=== PATIENT | male | born 1945 | race Caucasian/White ===

== ENCOUNTER → 2019-05-03 | Outpatient (CLI) | payer MEDICARE, OTHER ==
--- NOTE | 2019-05-03 11:16 | RAD ---
EXAM: CAROTID DOPPLER SONOGRAM. HISTORY: Left carotid bruit. TECHNIQUE: Garcia scale and color Doppler sonographic evaluation of the neck with spectral waveform analysis was performed and static images are submitted for review. FINDINGS: RIGHT: The peak systolic velocity within the common carotid artery is 64 cm/sec. The peak systolic velocity within the internal carotid artery is 119 cm/sec and the end diastolic velocity within the internal carotid artery is 29 cm/sec. The ICA/CCA ratio is 1.5. Grayscale images demonstrate bulky mixed plaquing at the carotid bulb. LEFT: The peak systolic velocity within the common carotid artery is 57 cm/sec. The peak systolic velocity within the internal carotid artery is 157 cm/sec and the end diastolic velocity within the internal carotid artery is 37 cm/sec. Velocities are also elevated at the left bulb with peak systolic velocity 188 cm/s. The ICA/CCA ratio is 3.1. Grayscale images demonstrate moderate uncalcified plaquing at the bulb. There is antegrade flow within both vertebral arteries. IMPRESSION: 1. Hemodynamics consistent with 50-69% stenosis of the left carotid bulb. Relatively bulky plaquing at the right bulb results in grayscale stenosis without elevated velocities. CTA or MRA could further characterize stenosis if there is persistent concern. PQRS Compliance Statement - Stenosis calculations for CT, MR and conventional angiography are based upon measurement of the distal ICA diameter in accordance with the NASCET methodology. Stenosis calculations for carotid ultrasound studies are derived from validated velocity criteria which are known to correlate with the NASCET methodology. Electronically signed by: Jus Almeida MD (05/03/2019 11:13 AM) [facility]
== END | disposition home or self-care (01) ==
LOC: US 09:06
PROVIDERS: ATTEND Family Medicine
DX: I65.23 Occlusion and stenosis of bilateral carotid arteries (principal)
CPT/HCPCS: 93880

== ENCOUNTER → 2020-01-07 | Outpatient (CLI) | payer MEDICARE, OTHER ==
--- NOTE | 2020-01-07 09:05 | RAD ---
MR#: [id number] Date of Study: 01/07/2020 Ordering Physician: ROSELIA RAYGOZA, Referring Physician: ROSELIA RAYGOZA, Tech: Shobha Swanson RVT, MS APPROVED REPORT Patient Location: OUT-PATIENT Laterality:Bilateral Indications Bruit Grayscale images of the bilateral carotid bulbs demonstrate moderate to severe heavy calcific plaque. The degree of obstruction is difficult to visualize on these grayscale images. On the right side there is likely a greater than 70% stenosis involving the external carotid artery a nd overall 0 to less than 50% stenosis involving the internal carotid artery. Nonetheless, the carot id bifurcation appears to have heavy calcification. On the left side at the level of the carotid bulb and proximal internal carotid artery there is an es timated 50 to 69% stenosis based on velocity criteria. Again calcium is obscuring the evaluation. Doppler Spectral Velocity Analysis Right Left pCCA 60/15 cm/spCCA 77/20 cm/s mCCA 65/15 cm/smCCA 58/16 cm/s dCCA 65/18 cm/sdCCA 57/19 cm/s Bulb 79/20 cm/sBulb 223/57 cm/s ECA 197/23 cm/sECA 89/23 cm/s pICA 95/26 cm/spICA 163/26 cm/s Alem 81/27 cm/smICA 113/29 cm/s dICA 83/30 cm/sdICA 78/21 cm/s Vert. 47/15 cm/sVert. 41/10 cm/s ICA/CCA 1.46ICA/CCA 2.12 Critical Notification Critical Value: No <Conclusion> 1. Moderate bilateral carotid bulb disease with likely moderate 50 to 69% stenosis involving the pro ximal internal carotid artery. Signed by : Roselia Raygoza, Electronically Approved : 01/07/2020 09:04:25
== END | disposition home or self-care (01) ==
LOC: US 07:46
PROVIDERS: ATTEND Internal Medicine Cardiovascular Disease
DX: I65.23 Occlusion and stenosis of bilateral carotid arteries (principal); I73.9 Peripheral vascular disease, unspecified
CPT/HCPCS: 93880

== ENCOUNTER 2021-10-20 12:05 | Emergency (ER) | payer MEDICARE, OTHER ==
[~2021-10-20] VITALS: Ht 177.8 cm; Wt 69.4 kg
--- NOTE | 2021-10-20 12:34 | PHYS DOC ---
Past History Past Surgical History: No Surgical History Alcohol Use: None General Adult EDM: Chief Complaint: NEURO SYMPTOMS/DEFICITS HPI: HPI: 76-year-old male presents with neuro symptoms. The patient was at a restaurant around 11 AM. When he went to get up, he was having difficulty grasping things with his right hand. He also had some unsteadiness when he stood up. He was able to talk but felt like he had to be very intentional about the words he used. He drove himself home with others following him. They told him he was drifting on the road a bit. The patient's then brought him to the emergency room. At this time all of his symptoms have resolved. Prior to this episode he was feeling normal and had no complaints. Review of Systems: Review of Systems: Constitutional: Denies fever or chills Eyes: Denies change in visual acuity HENT: Denies nasal congestion or sore throat Respiratory: Denies cough or shortness of breath Cardiovascular: Denies chest pain or edema GI: Denies abdominal pain, nausea, vomiting, bloody stools or diarrhea : Denies dysuria Musculoskeletal: Denies back pain or joint pain Integument: Denies rash Neurologic: Speech difficulty, right hand weakness; now resolved. Endocrine: Denies polyuria or polydipsia Lymphatic: Denies swollen glands Psychiatric: Denies depression or anxiety Allergies: Allergies: Allergies Coded Allergies Type Severity Reaction Last Updated Verified Penicillins Allergy Unknown 10/20/21 Yes Physical Exam: PE: Constitutional: Well developed, well nourished, no acute distress, non-toxic appearance. [] HENT: Normocephalic, atraumatic, bilateral external ears normal, oropharynx moist, no oral exudates, nose normal. [] Eyes: PERRLA, EOMI, conjunctiva normal, no discharge. [] Neck: Normal range of motion, no tenderness, supple, no stridor. [] Cardiovascular: Heart rate regular rhythm, no murmur [] Lungs & Thorax: Bilateral breath sounds clear to auscultation [] Abdomen: Bowel sounds normal, soft, no tenderness, no masses, no pulsatile masses. [] Skin: Warm, dry, no erythema, no rash. [] Back: No tenderness, no CVA tenderness. [] Extremities: No tenderness, no cyanosis, no clubbing, ROM intact, no edema. [] Neurologic: Alert and oriented X 3, normal motor function, normal sensory function, no focal deficits noted. [] Psychologic: Affect normal, judgement normal, mood normal. [] Current Patient Data: Vital Signs: Vital Signs Date Time Temp Pulse Resp B/P (MAP) Pulse Ox O2 Delivery O2 Flow Rate FiO2 10/20/21 12:10 98.0 70 22 149/65 (93) 97 Room Air EKG: EKG: [] Radiology/Procedures: Radiology/Procedures: [] Impressions: CT Head W/O Contrast: History: Reason: facial droop, right side weakness, difficulty speaking / Spl. Instructions: / History: Not a stroke protocol. Comparison: none Axial images were obtained without contrast. The cook and white matter appears normal and symmetrical for the patients age. There is no mass effect, extraaxial fluid collections or hydrocephalus. There is no gross bleed. 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 There is no focal loss of cook-white matter distinction to suggest acute ischemia, i.e. stroke. Impression: No acute findings. PQRS Compliance Statement: One or more of the following individualized dose reduction techniques were utilized for this examination: 1. Automated exposure control 2. Adjustment of the mA and/or kV according to patient size 3. Use of iterative reconstruction technique Electronically signed by: Christiana Murray III, MD (10/20/2021 1:04 PM) [id number] DICTATED AND SIGNED BY: CHRISTIANA MURRAY III, MD DATE: 10/20/21 1301 CC: AMY SAHA DO; AMAYA IRENE MD ~ EXAMINATION: CTA HEAD AND NECK W/WO CONTRAST CLINICAL HISTORY: Aphasia, right-sided weakness, disorientation. TECHNIQUE: Spiral high resolution axial images were obtained through the head, neck and superior mediastinum following bolus administration of intravenous contrast for CT angiography. 3D maximum intensity projection images also performed. CT Dose Reduction Employed: One or more of the following individualized dose reduction techniques were utilized for this examination: 1. Automated exposure control 2. Adjustment of the mA and/or kV according to patient size 3. Use of iterative reconstruction technique. COMPARISON: NECT head same day FINDINGS: BRAIN: No evidence of acute ischemic stroke or intracranial hemorrhage. NECK: Soft Tissues: No acute abnormality. Spine: No significant degenerative changes. Lung Apices: Visualized lung apices unremarkable. CT ARTERIOGRAM: Extracranial Circulation: Aortic Arch: Normal branching pattern from the aortic arch. No significant stenosis in the proximal brachiocephalic vessels. Carotid Stenosis: Right Common: No significant stenosis. Right Internal Carotid Plaque: Moderate mixed plaque in the bulb with superimposed thrombus. Contrast dissects through the thrombus without definitive evidence of free floating thrombus. Right Internal Carotid Stenosis (% by NASCET Criteria): Estimated 55% stenosis in the carotid bulb. Left Common: No significant stenosis. Left Internal Carotid Plaque: Moderate mixed plaque in the bulb. Left Internal Carotid Stenosis (% by NASCET Criteria): Estimated 80% stenosis in the carotid bulb. Cervical Vertebral Arteries: Patency: Bilateral Dominance: Right Intracranial Circulation: Anterior Circulation: No evidence of large vessel occlusion. Mild calcified plaque in the intracranial portion of bilateral internal carotid arteries. Vertebrobasilar Circulation: No evidence of large vessel occlusion. Minimal calcified plaque in the intracranial portion of the right vertebral artery. IMPRESSION: No visualized large vessel occlusion. Contrast dissecting through thrombus in the right carotid bulb without definitive evidence of free floating thrombus. Thrombus and subjacent atherosclerotic plaque results in 55% stenosis in the carotid bulb. Estimated 80% stenosis in the left carotid bulb. Findings discussed with AMY SAHA DO at 10/20/2021 2:30 PM. Images not available at the physician workstation until 2:08 PM. Electronically signed by: Robby Horowitz DO (10/20/2021 2:37 PM) [facility] DICTATED AND SIGNED BY: ROBBY HOROWITZ DO DATE: 10/20/21 141 CC: AMY SAHA DO; AMAYA IRENE MD ~ Heart Score: C/O Chest Pain: N/A Risk Factors: Risk Factors: DM, Current or recent (<one month) smoker, HTN, HLP, family history of CAD, obesity. Risk Scores: Score 0 - 3: 2.5% MACE over next 6 weeks - Discharge Home Score 4 - 6: 20.3% MACE over next 6 weeks - Admit for Clinical Observation Score 7 - 10: 72.7% MACE over next 6 weeks - Early Invasive Strategies Course & Med Decision Making: Course & Med Decision Making Pertinent Labs and Imaging studies reviewed. (See chart for details) The patient's initial NIH score was 0. All of his labs and work-up are pending, he began to have more difficulty speaking. His words are clear but that not making any sense. I showed him his head CT report and asked him to read it. The words that he was saying were clear but it was nonsensical. I discussed CT angiogram with the patient's and then tPA. The patient is still well wi thin the window of tPA use. He does not have any absolute contraindications. She states she believes the patient would want to move forward with this medication. Just before we started the patient's tPA, the radiologist called with the CT angiogram read. He mentioned a right internal carotid stenosis with a possibly mobile thrombus. The patient also has an 80% occlusion on the left. I spoke with our neurologist at [facility], Dr. Marrufo and he recommended I consult stroke neurology. I spoke with Dr. Recinos at and she recommended continuing with the tPA if the patient wanted to and then transferring the patient to [facility] for monitoring, evaluation of his vascular stenosis and likely procedure to correct this. I had a long conversation with the patient and his . The patient is back to baseline at 1500. He has opted not to do tPA at this time but has agreed to transfer and admission at [facility]. If he has an additional episode we will give the tPA. This is consistent with the options Dr. Recinos talk to me about. I made the hospitalist, Dr. Oquendo aware of these conversations. He is the accepting physician for transfer. [] Lilibeth Disclaimer: Lilibeth Disclaimer: This electronic medical record was generated, in whole or in part, using a voice recognition dictation system. NIH Stroke Scale: NIH Stroke Scale Response (Comments) Value Level of Consciousness: 0 Alert/Responsive 0 LOC Questions: 0 Answers both correctly 0 LOC Commands: 0 Performs both tasks 0 Best Gaze: 0 Normal 0 Visual: 0 No visual loss 0 Facial Palsy: 0 Normal, symmetrical 0 Motor - Left Arm 0 No drift 0 Motor - Right Arm 0 No drift 0 Motor - Left Leg 0 No drift 0 Motor: Right Leg 0 No drift 0 Limb Ataxia: 0 Absent 0 Sensory: 0 No loss 0 Best Language: 2 Severe aphasia 2 Dysathria: 0 Normal 0 Extinction and Inattention: 0 Normal 0 Total 2 Departure Departure: Impression: Primary Impression: Aphasia Additional Impressions: Carotid stenosis Qualified Codes: I65.23 - Occlusion and stenosis of bilateral carotid arteries Hypertension Disposition: 02 SHORT TERM HOSPITAL Condition: STABLE Referrals: AMAYA IRENE MD (PCP) AMY SAHA DO Oct 20, 2021 12:34
[2021-10-20 13:03] LABS: BASO # 0.1 x10^3/uL (0.0-0.2); BASO % 1 % (0-3); EOS # 0.3 x10^3/uL (0.0-0.7); EOS % 4 % (0-3); HEMATOCRIT 41.3 % (39.0-53.0); HEMOGLOBIN 13.6 g/dL (13.0-17.5); LYMPH % 14 % (24-48); MEAN CORPUSCULAR HEMOGLOBIN 30 pg (25-35); MEAN CORPUSCULAR HGB CONC 33 g/dL (31-37); MEAN CORPUSCULAR VOLUME 90 fL (79-100); MONO # 0.5 x10^3/uL (0.0-1.1); MONO % 7 % (0-9); NEUT # 5.4 x10^3uL (1.8-7.7); NEUT % 74 % (31-73); PLATELET COUNT 220 x10^3/uL (140-400); RED BLOOD COUNT 4.59 x10^6/uL (4.30-5.70); RED CELL DISTRIBUTION WIDTH 13.7 % (11.5-14.5); WHITE BLOOD COUNT 7.3 x10^3/uL (4.0-11.0)
--- NOTE | 2021-10-20 13:06 | RAD ---
CT Head W/O Contrast: History: Reason: facial droop, right side weakness, difficulty speaking / Spl. Instructions: / Histo ry: Not a stroke protocol. Comparison: none Axial images were obtained without contrast. The cook and white matter appears normal and symmetrical for the patients age. There is no mass effe ct, extraaxial fluid collections or hydrocephalus. There is no gross bleed. 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 There is no focal loss of cook-white matter distinction to suggest acut e ischemia, i.e. stroke. Impression: No acute findings. PQRS Compliance Statement: One or more of the following individualized dose reduction techniques were utilized for this examinat ion: 1. Automated exposure control 2. Adjustment of the mA and/or kV according to patient size 3. Use of iterative reconstruction technique Electronically signed by: Baldo Keene III, MD (10/20/2021 1:04 PM) [id number]
--- NOTE | 2021-10-20 13:10 | RAD ---
XR CHEST 1V 10/20/2021 12:34 PM INDICATION: Facial droop, right-sided weakness COMPARISON: None available TECHNIQUE: Portable frontal view of the chest is provided. FINDINGS: The cardiomediastinal silhouette is within normal limits. Lungs are clear. There are no significant pleural effusions. There is no pulmonary vascular congestion. No pneumothora x. No suspicious osseous abnormality. IMPRESSION: There is no acute cardiopulmonary process. Electronically signed by: Kristyn Aguero MD (10/20/2021 1:07 PM) [facility]
[2021-10-20 13:14] LABS: CALCIUM 8.7 mg/dL (8.5-10.1); CREATININE 1.4 mg/dL (0.7-1.3); POTASSIUM 4.4 mmol/L (3.5-5.1)
[2021-10-20 13:20] LABS: ALBUMIN 3.2 g/dL (3.4-5.0); ALBUMIN/GLOBULIN RATIO 1.1 (1.0-1.7); TOTAL BILIRUBIN 0.4 mg/dL (0.2-1.0); TOTAL PROTEIN 6.1 g/dL (6.4-8.2)
[2021-10-20] MEDS: IV NORMAL SALINE 100ML 100 ML IV ONE (13:30)
[2021-10-20] MEDS ORDERED: LABETALOL 20 MG/4 ML DISP.SYRIN. IVP PRN (13:30)
[2021-10-20] MEDS: ALTEPLASE 6.2 MG IV ONE (13:30)
[2021-10-20] MEDS: ALTEPLASE IV ONE (13:30)
[2021-10-20] MEDS: IOHEXOL 350 MG/ML 100 ML VIAL. IV ONE (13:46)
--- NOTE | 2021-10-20 14:07 | EKG ---
[address] [address] Test Date: 2021-10-20 Test Time: 12:34:30 Pat Name: REYES CAMPBELL Department: Room: Gender: M Yard Operator: TIM : 1945 Requested By: AMY SAHA Order Number: [id number] Reading MD: Joseph Saha Measurements Intervals [place] Rate: 59 P: 52 NE: 174 QRS: -52 QRSD: 104 T: 58 QT: 420 QTc: 420 Interpretive Statements SINUS RHYTHM MILD NON SPECIFIC ST CHANGES Electronically Signed On 10-24-2021 17:37:00 CDT by Joseph Saha
[2021-10-20] MEDS: IV NORMAL SALINE 1,000ML 1,000 ML IV ONE (14:34)
--- NOTE | 2021-10-20 14:39 | RAD ---
EXAMINATION: CTA HEAD AND NECK W/WO CONTRAST CLINICAL HISTORY: Aphasia, right-sided weakness, disorientation. TECHNIQUE: Spiral high resolution axial images were obtained through the head, neck and superior medi astinum following bolus administration of intravenous contrast for CT angiography. 3D maximum intensi ty projection images also performed. CT Dose Reduction Employed: One or more of the following individualized dose reduction techniques wer e utilized for this examination: 1. Automated exposure control 2. Adjustment of the mA and/or kV ac cording to patient size 3. Use of iterative reconstruction technique. COMPARISON: NECT head same day FINDINGS: BRAIN: No evidence of acute ischemic stroke or intracranial hemorrhage. NECK: Soft Tissues: No acute abnormality. Spine: No significant degenerative changes. Lung Apices: Visualized lung apices unremarkable. CT ARTERIOGRAM: Extracranial Circulation: Aortic Arch: Normal branching pattern from the aortic arch. No significant stenosis in the proximal b rachiocephalic vessels. Carotid Stenosis: Right Common: No significant stenosis. Right Internal Carotid Plaque: Moderate mixed plaque in the bulb with superimposed thrombus. Contrast dissects through the thrombus without definitive evidence of free floating thrombus. Right Internal Carotid Stenosis (% by NASCET Criteria): Estimated 55% stenosis in the carotid bulb. Left Common: No significant stenosis. Left Internal Carotid Plaque: Moderate mixed plaque in the bulb. Left Internal Carotid Stenosis (% by NASCET Criteria): Estimated 80% stenosis in the carotid bulb. Cervical Vertebral Arteries: Patency: Bilateral Dominance: Right Intracranial Circulation: Anterior Circulation: No evidence of large vessel occlusion. Mild calcified plaque in the intracrania l portion of bilateral internal carotid arteries. Vertebrobasilar Circulation: No evidence of large vessel occlusion. Minimal calcified plaque in the i ntracranial portion of the right vertebral artery. IMPRESSION: No visualized large vessel occlusion. Contrast dissecting through thrombus in the right carotid bulb without definitive evidence of free fl oating thrombus. Thrombus and subjacent atherosclerotic plaque results in 55% stenosis in the carotid bulb. Estimated 80% stenosis in the left carotid bulb. Findings discussed with AMY SAHA DO at 10/20/2021 2:30 PM. Images not available at the physician w orkstation until 2:08 PM. Electronically signed by: Robby Corey DO (10/20/2021 2:37 PM) [facility]
[2021-10-20 15:06] LABS: CLARITY,URINE CLEAR; COLOR,URINE YELLOW; GLUCOSE,URINE NEG (NEG)
[2021-10-20 15:07] LABS: BACTERIA,URINE 0 /HPF (0-FEW); NITRITE,URINE NEG (NEG); RBC,URINE 0 /HPF (0-2); UROBILINOGEN,URINE 0.2 mg/dL (0.2 mg/dL); WBC,URINE 0 /HPF (0-4)
[2021-10-20 18:18] VITALS: BP 175/102
== END 2021-10-20 18:20 | disposition short-term general hospital (02) ==
LOC: ER 12:05
DX: R53.1 Weakness (principal); R47.01 Aphasia; I65.22 Occlusion and stenosis of left carotid artery; I10 Essential (primary) hypertension; Z88.0 Allergy status to penicillin
CPT/HCPCS: 36415; 70450; 70496; 70498; 71045; 80053; 81001; 84484; 85025; 85610; 85730; 93005; 96360; 96361; 99285; Q9967; J7030